=== PATIENT | male | born 1945 | race Two or more races ===

== ENCOUNTER 2019-08-18 09:49 | Emergency (ER) | payer MEDICARE, MEDICAID ==
[2019-06-06 11:09] VITALS: BP 123/86
[~2019-08-18] VITALS: Ht 170.2 cm; Wt 81.4 kg
[~2019-08-18 09:49] MED LIST: PRED20TA PO; TRAM50TA PO
[2019-08-18] MEDS ORDERED: ORPH100T PO (10:45)
[2019-08-18] MEDS ORDERED: METH4TAB2 PO (10:45)
[2019-08-18] MEDS ORDERED: HYDR-2761 PO (10:45)
--- NOTE | 2019-08-18 10:46 | PHYS DOC ---
Past Medical History Past Medical History: Anxiety, GERD, High Cholesterol Past Surgical History: Knee Replacement, Other Additional Past Surgical Histo: SHOULDER Alcohol Use: Occasionally Drug Use: None Adult General Chief Complaint Chief Complaint: LOWER BACK PAIN OR INJURY HPI HPI Patient is a 73 year old male who presents with patient states 2 months ago he was wearing leather soled shoes and slipped on the carpet and went down some stairs and hurt his Left lower back. Patient states he went to [facility] and they did an MRI and nothing was found. Patient states since then he's had pain on that left lower back. Patient states that over the last couple days has gotten worse but he states he has not done any different activity than usual. Patient states that at times a spot on his left lateral thigh will go numb. Patient currently rating his pain a10/10. Review of Systems Review of Systems Constitutional: Denies fever or chills [] Musculoskeletal: Left low back pain or joint pain [] Integument: Denies rash or skin lesions [] Neurologic: Left lateral thigh numbness off and on. Denies headache, focal weakness or sensory changes [] All other systems were reviewed and found to be within normal limits, except as documented in this note. Allergies Allergies Allergies Coded Allergies Type Severity Reaction Last Updated Verified adhesive tape Allergy Intermediate 06/06/19 Yes latex Allergy Intermediate 06/06/19 Yes Physical Exam Physical Exam Constitutional: Well developed, well nourished, no acute distress, non-toxic appearance. [] Skin: Warm, dry, no erythema, no rash. [] Back: Left lower back tenderness, no CVA tenderness. [] Extremities: No tenderness, no cyanosis, no clubbing, ROM intact, no edema. [] Neurologic: Alert and oriented X 3, normal motor function, normal sensory function, no focal deficits noted. [] Psychologic: Affect normal, judgement normal, mood normal. [] Current Patient Data Vital Signs Vital Signs Date Time Temp Pulse Resp B/P (MAP) Pulse Ox O2 Delivery O2 Flow Rate FiO2 08/18/19 09:55 97.9 95 20 136/78 (97) 97 Room Air 97.9 EKG EKG [] Radiology/Procedures Radiology/Procedures [] Course & Med Decision Making Course & Med Decision Making Patient states he's been using a heating pad and ibuprofen for the pain. He is ambulatory with a steady gait but is holding his left back as he walks. There is no extremity swelling, skin is pink warm and dry. Patient denies the leg which are going cold or skin color changes. No calf tenderness. Left low back is slightly tender to palpation but there is no deformity felt or bruising seen. Alert and oriented. Speaks in full clear sentences. There is no weakness in the extremity. Patient denies losing bowel or bladder. Dragon Disclaimer Dragon Disclaimer This electronic medical record was generated, in whole or in part, using a voice recognition dictation system. Departure Departure Impression: Primary Impression: Chronic low back pain Disposition: HOME, SELF-CARE Condition: STABLE Referrals: MICHAEL GÓMEZ APRN (PCP) Patient Instructions: Back Pain, Adult Additional Instructions: Follow up with primary care provider. Continue using heating pad or Ice. Scripts Methylprednisolone (MEDROL) 4 Mg Tab.ds.pk 1 PKG PO UD, #1 PKG Prov: RADHA OCHOA APRN 08/18/19 Orphenadrine Citrate (ORPHENADRINE CITRATE) 100 Mg Tablet.er 1 TAB PO BID, #20 TAB Prov: RADHA OCHOA APRN 08/18/19 Hydrocodone Bit/Acetaminophen (HYDROCODONE-APAP 5-325 ) 1 Tab Tablet 1 TAB PO PRN Q6HRS PRN for PAIN, #10 TAB 0 Refills Prov: RADHA OCHOA APRN 08/18/19 Problem Qualifiers Primary Impression: Chronic low back pain Back pain laterality: left Sciatica presence: without sciatica Qualified Codes: M54.5 - Low back pain; G89.29 - Other chronic pain RADHA OCHOA APRN Aug 18, 2019 10:46
[2019-08-18] MEDS ORDERED: ORPHENADRINE CITRATE 60 MG/2 ML VIAL. IM ONE (11:00)
[2019-08-18] MEDS ORDERED: HYDROcodone/APAP 5/325MG 1 TAB TABLET PO ONE (11:00)
== END 2019-08-18 10:58 | disposition home or self-care (01) ==
LOC: ER 09:49
DX: G89.29 Other chronic pain (principal); M54.5 Low back pain; F41.9 Anxiety disorder, unspecified; K21.9 Gastro-esophageal reflux disease without esophagitis; E78.00 Pure hypercholesterolemia, unspecified; Z96.659 Presence of unspecified artificial knee joint; Z88.8 Allergy status to other drugs, medicaments and biological substances; Z91.040 Latex allergy status; W10.8XXA Fall (on) (from) other stairs and steps, initial encounter; Y93.89 Activity, other specified; Y92.89 Other specified places as the place of occurrence of the external cause; Y99.8 Other external cause status
CPT/HCPCS: 96372; 99284; J2360

== ENCOUNTER 2019-08-31 14:56 | Emergency (ER) | payer MEDICARE, MEDICAID ==
[~2019-08-31] VITALS: Ht 170.2 cm; Wt 81.2 kg
[~2019-08-31 14:56] MED LIST changes: +HYDR-2761 PO; +METH4TAB2 PO; +ORPH100T PO
--- NOTE | 2019-08-31 17:30 | RAD ---
RIBS LEFT AND PA CHEST 08/31/2019 4:45 PM INDICATION: Left-sided rib pain after fall 200923/04/2019 COMPARISON: None available TECHNIQUE: Portable frontal view of the chest is provided. 3 dedicated views of the left ribs are provided. FINDINGS: The cardiomediastinal silhouette is similar in appearance. Lungs are clear. Contour abnormality is identified involving the lateral sixth and seventh ribs which could reflect nondisplaced or healed rib fractures. There are no significant pleural effusions. There is no pulmonary vascular congestion. No pneumothorax. IMPRESSION: Contour abnormality is identified involving the lateral sixth and seventh ribs which could reflect nondisplaced or healed rib fractures. Correlate with a site of point tenderness. Electronically signed by: Louise Sánchez MD (08/31/2019 5:27 PM) [facility]
[2019-08-31] MEDS ORDERED: HYDR-2761 PO (17:55)
--- NOTE | 2019-08-31 17:56 | PHYS DOC ---
Past Medical History Past Medical History: Anxiety, GERD, High Cholesterol (ADAM LEON APRN) Past Surgical History: Knee Replacement, Other Additional Past Surgical Histo: SHOULDER (ADAM LEON APRN) Alcohol Use: Occasionally Drug Use: None (ADAM LEON APRN) Adult General Chief Complaint Chief Complaint: MECHANICAL FALL HPI HPI Patient is a 73 year old male, accompanied by his , who presents to the ER with complaints of left rib pain. Pt states he tried to sit on a chair that rolled Saturday evening at 2330 when it slid out from under him and he fell. Pt states he didn't think much of it until he went for a routine CT of his lungs today and was told he had rib fractures by the staff at . Patient denies any shortness of breath, hemoptysis, chest pain, difficulty breathing, or cough. He currently rates his pain an 8 out of 10 on the pain scale, the pain increases with deep inspiration and coughing. He denies any alleviating factors. (ADAM LEON APRN) Review of Systems Review of Systems Constitutional: Denies fever or chills [] Respiratory: Denies cough or shortness of breath; see history of present illness[] Cardiovascular: No additional information not addressed in HPI [] GI: Denies abdominal pain, nausea, vomiting, or diarrhea [] Musculoskeletal: Denies back pain or joint pain; complains of left lateral rib pain [] Integument: Denies rash or skin lesions [] Neurologic: Denies headache, focal weakness or sensory changes [] Complete systems were reviewed and found to be within normal limits, except as documented in this note. (ADAM LEON APRN) Current Medications Current Medications Current Medications Medications (Trade) Dose Ordered Sig/Stephanie Start Time Stop Time Status Last Admin Dose Admin Acetaminophen/ Hydrocodone Bitart (Lortab 5/325) 1 tab 1X ONCE 08/31/19 18:00 08/31/19 18:01 DC 08/31/19 18:14 1 TAB (LAURA KIRAN MD) Allergies Allergies Allergies Coded Allergies Type Severity Reaction Last Updated Verified adhesive tape Allergy Intermediate 06/06/19 Yes latex Allergy Intermediate 06/06/19 Yes (LAURA KIRAN MD) Physical Exam Physical Exam Constitutional: Well developed, well nourished, no acute distress, non-toxic appearance. [] HENT: Normocephalic, atraumatic, bilateral external ears normal, oropharynx moist, no oral exudates, nose normal. [] Eyes: PERRLA, EOMI, conjunctiva normal, no discharge. [] Neck: Normal range of motion, no stridor. [] Cardiovascular:Heart rate regular rhythm, no murmur [] Lungs & Thorax: Bilateral breath sounds clear to auscultation; left lateral rib TTP, no crepitus, no subcutaneous emphysema noted [] Skin: Warm, dry, no erythema, no rash. [] Back: No tenderness Extremities: No cyanosis, no clubbing, ROM intact, no edema. [] Neurologic: Alert and oriented X 3, no focal deficits noted. [] Psychologic: Affect normal, judgement normal, mood normal. [] (ADAM LEON APRN) Current Patient Data Vital Signs Vital Signs Date Time Temp Pulse Resp B/P (MAP) Pulse Ox O2 Delivery O2 Flow Rate FiO2 08/31/19 18:14 16 99 Room Air 08/31/19 18:02 98.6 82 136/78 (97) 98.6 (LAURA KIRAN MD) EKG EKG [] (ADAM LEON APRN) Radiology/Procedures Radiology/Procedures PROCEDURE: RIBS LEFT AND PA CHEST RIBS LEFT AND PA CHEST 08/31/2019 4:45 PM INDICATION: Left-sided rib pain after fall 200923/04/2019 COMPARISON: None available TECHNIQUE: Portable frontal view of the chest is provided. 3 dedicated views of the left ribs are provided. FINDINGS: The cardiomediastinal silhouette is similar in appearance. Lungs are clear. Contour abnormality is identified involving the lateral sixth and seventh ribs which could reflect nondisplaced or healed rib fractures. There are no significant pleural effusions. There is no pulmonary vascular congestion. No pneumothorax. IMPRESSION: Contour abnormality is identified involving the lateral sixth and seventh ribs which could reflect nondisplaced or healed rib fractures. Correlate with a site of point tenderness. [] (ADAM LEON APRN) Course & Med Decision Making Course & Med Decision Making Pertinent Labs and Imaging studies reviewed. (See chart for details) dx: rib fractures left lateral ribs Prescription was written for hydrocodone. Patient encouraged follow-up with primary care doctor in 1-2 days, return to the ER if symptoms worsen recommend that he takes 2 deep breaths and coughs were holding a pillow twice an hour while he is awake. Pt verbalized an understanding of home care, medications, follow-up, and return to ED instructions and was in agreement with the plan of care. [] (ADAM LEON APRN) Course & Med Decision Making I was not involved in the care of this patient after 1800 on . (LAURA KIRAN MD) Dragon Disclaimer Dragon Disclaimer This electronic medical record was generated, in whole or in part, using a voice recognition dictation system. (ADAM LEON APRN) Departure Departure Impression: Primary Impression: Multiple fractures of ribs, left side, initial encounter for closed fracture Disposition: HOME, SELF-CARE Condition: STABLE Referrals: MICHAEL GÓMEZ APRN (PCP) Patient Instructions: Rib Fracture, [id number] Additional Instructions: Fill the prescription and take as directed for severe pain. Hold a pillow and cough at least 2 times every hour while awake. Follow up with your primary care doctor this week. Return to the ER if symptoms worsen. Scripts Hydrocodone Bit/Acetaminophen (HYDROCODONE-APAP 5-325 ) 1 Tab Tablet 1 TAB PO PRN Q6HRS PRN for PAIN for 3 Days, #12 TAB 0 Refills Prov: ADAM LEON APRN 08/31/19 ADAM LEON APRN Aug 31, 2019 17:56 LAURA KIRAN MD Sep 04, 2019 12:17
[2019-08-31] MEDS ORDERED: HYDROcodone/APAP 5/325MG 1 TAB TABLET PO ONE (18:00)
[2019-08-31 18:02] VITALS: BP 136/78
== END 2019-08-31 18:17 | disposition home or self-care (01) ==
LOC: ER 14:56
DX: S22.42XA Multiple fractures of ribs, left side, initial encounter for closed fracture (principal); F41.9 Anxiety disorder, unspecified; K21.9 Gastro-esophageal reflux disease without esophagitis; E78.00 Pure hypercholesterolemia, unspecified; Z96.659 Presence of unspecified artificial knee joint; Z88.8 Allergy status to other drugs, medicaments and biological substances; Z91.040 Latex allergy status; W07.XXXA Fall from chair, initial encounter; Y93.89 Activity, other specified; Y92.89 Other specified places as the place of occurrence of the external cause; Y99.8 Other external cause status
CPT/HCPCS: 71101; 99284

== ENCOUNTER 2019-11-21 10:20 | Emergency (ER) | payer MEDICARE, MEDICAID ==
[2019-11-21 10:41] VITALS: BP 132/82
--- NOTE | 2019-11-21 10:52 | PHYS DOC ---
Past Medical History Past Medical History: Anxiety, GERD, High Cholesterol Past Surgical History: Knee Replacement, Other Additional Past Surgical Histo: SHOULDER Alcohol Use: Occasionally Drug Use: None Adult General Chief Complaint Chief Complaint: BACK PAIN OR INJURY HPI HPI Patient is a 73 year old male who presents with September 30, 2019 patient was diagnosed at with a complaint compression fracture in the lumbar spine. Earlene saldaña states he's been seen at the pain clinic and they did an MRI at . He states that they scheduled him for December 03 given epidural. Patient states that he is here today because he is in more pain than usual and pain clinic is not given him anything. He states he still does have some numbness in that left thigh that he has had since September. Patient is standing and pacing in the room with a steady gait. Patient states he also has a dry cough that has had off and on for a month. He states it's mainly when he goes outside in residential the cold air. He denies asthma or COPD or other lung issues. Denies any fevers, shortness of breath, chest pain, nausea, vomiting, abdominal pain, headache, dizziness, syncope, diarrhea. Denies any loss of bowel or bladder. Rates pain a 10/10. Review of Systems Review of Systems Respiratory: Dry cough or denies shortness of breath [] Musculoskeletal: Chronic back pain or joint pain [] All other systems were reviewed and found to be within normal limits, except as documented in this note. Current Medications Current Medications Current Medications Medications (Trade) Dose Ordered Sig/Stephanie Start Time Stop Time Status Last Admin Dose Admin Acetaminophen/ Hydrocodone Bitart (Lortab 5/325) 1 tab 1X ONCE 11/21/19 11:00 11/21/19 11:01 DC 11/21/19 11:15 1 TAB Orphenadrine Citrate (Norflex) 60 mg 1X ONCE 11/21/19 11:00 11/21/19 11:01 DC 11/21/19 11:15 60 MG Allergies Allergies Allergies Coded Allergies Type Severity Reaction Last Updated Verified adhesive tape Allergy Intermediate 06/06/19 Yes latex Allergy Intermediate 06/06/19 Yes Physical Exam Physical Exam Constitutional: Well developed, well nourished, no acute distress, non-toxic appearance. [] HENT: Normocephalic, atraumatic, bilateral external ears normal, oropharynx moist, no oral exudates, nose normal. [] Eyes: PERRLA, EOMI, conjunctiva normal, no discharge. [] Neck: Normal range of motion, no tenderness, supple, no stridor. [] Cardiovascular:Heart rate regular rhythm, no murmur [] Lungs & Thorax: Bilateral breath sounds clear to auscultation [] Abdomen: Bowel sounds normal, soft, no tenderness, no masses, no pulsatile masses. [] Skin: Warm, dry, no erythema, no rash. [] Back: Left low back tenderness, no CVA tenderness. [] Extremities: No tenderness, no cyanosis, no clubbing, ROM intact, no edema. [] Neurologic: Alert and oriented X 3, normal motor function, normal sensory function, no focal deficits noted. Numbness to left thigh. [] Psychologic: Affect normal, judgement normal, mood normal. [] Current Patient Data Vital Signs Vital Signs Date Time Temp Pulse Resp B/P (MAP) Pulse Ox O2 Delivery O2 Flow Rate FiO2 11/21/19 10:41 98.5 76 17 132/82 (99) 98 Room Air 98.5 EKG EKG [] Radiology/Procedures Radiology/Procedures [] Impressions: [facility] [address] [place] [address] IMAGING REPORT Signed PATIENT: COLLEEN CHAPIN ACCOUNT: [id number] : 1945 LOCATION: ER AGE: 73 SEX: M EXAM STATUS: REG ER ORD. PHYSICIAN: RADHA OCHOA APRN REASON: cough, dry cough one month PROCEDURE: CHEST PA & LATERAL Two-view chest dated 11/21/2019. Comparison made to 08/31/2019. CLINICAL INDICATION: Cough. FINDINGS:. PA and lateral views seen. Heart and mediastinal contours are stable. Lungs are somewhat hyperinflated but otherwise clear. No consolidation or pleural effusion. No pneumothorax. IMPRESSION: No acute findings. Electronically signed by: Justino Leonard MD (11/21/2019 11:30 AM) [facility] DICTATED and SIGNED BY: JUSTINO LEONARD MD DATE: 11/21/19 8814 Course & Med Decision Making Course & Med Decision Making Alert and oriented. Lungs are clear patient all lobes. Skin pink warm and dry. Vital signs within normal limits. Speaks in full clear sentences. Tenderness to left lower back. No saddle paresthesia. Chest xray shows no acute findings. Dragon Disclaimer [employer] Disclaimer This electronic medical record was generated, in whole or in part, using a voice recognition dictation system. Departure Departure Impression: Primary Impression: Chronic low back pain Disposition: HOME, SELF-CARE Condition: STABLE Referrals: MICHAEL GÓMEZ APRN (PCP) Patient Instructions: Chronic Back Pain, Cough, Adult Additional Instructions: Take medications as prescribed. Keep your scheduled appointments. Covering your face before you go outside since the cold air triggers your cough. Scripts Orphenadrine Citrate (ORPHENADRINE CITRATE) 100 Mg Tablet.er 1 TAB PO BID, #60 TAB 1 Refill Prov: RADHA OCHOA APRN 11/21/19 Hydrocodone/Apap 5-325 (NORCO 5-325 TABLET) 1 Each Tablet 1 TAB PO PRN Q6HRS PRN for PAIN, #10 TAB 0 Refills Prov: RADHA OCHOA APRN 11/21/19 Methylprednisolone (MEDROL) 4 Mg Tab.ds.pk 1 PKG PO UD, #1 PKG Prov: RADHA OCHOA APRN 11/21/19 Problem Qualifiers Primary Impression: Chronic low back pain Back pain laterality: left Sciatica presence: without sciatica Qualified Codes: M54.5 - Low back pain; G89.29 - Other chronic pain RADHA OCHOA APRN Nov 21, 2019 10:52
[2019-11-21] MEDS ORDERED: HYDROcodone/APAP 5/325MG 1 TAB TABLET PO ONE (11:00)
[2019-11-21] MEDS ORDERED: ORPHENADRINE CITRATE 60 MG/2 ML VIAL. IM ONE (11:00)
--- NOTE | 2019-11-21 11:32 | RAD ---
Two-view chest dated 11/21/2019. Comparison made to 08/31/2019. CLINICAL INDICATION: Cough. FINDINGS:. PA and lateral views seen. Heart and mediastinal contours are stable. Lungs are somewhat hyperinflated but otherwise clear. No consolidation or pleural effusion. No pneumothorax. IMPRESSION: No acute findings. Electronically signed by: Justino Leonard MD (11/21/2019 11:30 AM) [facility]
[2019-11-21] MEDS ORDERED: HYDR-3164 PO (11:43)
[2019-11-21] MEDS ORDERED: METH4TAB2 PO (11:43)
[2019-11-21] MEDS ORDERED: ORPH100T PO (11:43)
== END 2019-11-21 11:58 | disposition home or self-care (01) ==
LOC: ER 10:20
DX: G89.29 Other chronic pain (principal); M54.5 Low back pain; R05 Cough; R20.0 Anesthesia of skin; F41.9 Anxiety disorder, unspecified; K21.9 Gastro-esophageal reflux disease without esophagitis; E78.00 Pure hypercholesterolemia, unspecified; Z91.040 Latex allergy status; Z88.8 Allergy status to other drugs, medicaments and biological substances
CPT/HCPCS: 71046; 96372; 99284; J2360

== ENCOUNTER 2020-03-20 18:08 | Emergency (ER) | payer MEDICARE, MEDICAID ==
[~2020-03-20] VITALS: Ht 170.2 cm; Wt 68.0 kg
[~2020-03-20 18:08] MED LIST changes: +HYDR-3164 PO
[2020-03-20 19:59] LABS: BASO # 0.1 x10^3/uL (0.0-0.2); BASO % 1 % (0-3); EOS # 0.3 x10^3/uL (0.0-0.7); EOS % 4 % (0-3); HEMATOCRIT 41.4 % (39.0-53.0); HEMOGLOBIN 14.2 g/dL (13.0-17.5); LYMPH # 3.1 x10^3/uL (1.0-4.8); LYMPH % 44 % (24-48); MEAN CORPUSCULAR HEMOGLOBIN 32 pg (25-35); MEAN CORPUSCULAR HGB CONC 34 g/dL (31-37); MEAN CORPUSCULAR VOLUME 94 fL (79-100); MONO # 0.5 x10^3/uL (0.0-1.1); MONO % 7 % (0-9); NEUT # 3.2 x10^3/uL (1.8-7.7); NEUT % 45 % (31-73); PLATELET COUNT 273 x10^3/uL (140-400); RED BLOOD COUNT 4.43 x10^6/uL (4.30-5.70); RED CELL DISTRIBUTION WIDTH 13.6 % (11.5-14.5); WHITE BLOOD COUNT 7.1 x10^3/uL (4.0-11.0)
[2020-03-20 20:01] LABS: BILIRUBIN,URINE NEGATIVE (NEG); CLARITY,URINE CLEAR; COLOR,URINE YELLOW; NITRITE,URINE NEGATIVE (NEG); PH,URINE 5.5 (<5.0-8.0); PROTEIN,URINE NEGATIVE (NEG-TRACE); UROBILINOGEN,URINE 0.2 mg/dL (0.2 mg/dL)
[2020-03-20 20:04] LABS: RBC,URINE TNTC /HPF (0-2); WBC,URINE OCC /HPF (0-4)
[2020-03-20 20:05] LABS: BACTERIA,URINE 0 /HPF (0-FEW); SQUAMOUS EPITHELIAL CELL,UR MOD /LPF
[2020-03-20 20:17] LABS: ALBUMIN 3.3 g/dL (3.4-5.0); ALBUMIN/GLOBULIN RATIO 1.1 (1.0-1.7); CALCIUM 8.4 mg/dL (8.5-10.1); CREATININE 0.9 mg/dL (0.7-1.3); GFR 82.7; POTASSIUM 3.7 mmol/L (3.5-5.1); TOTAL BILIRUBIN 0.4 mg/dL (0.2-1.0); TOTAL PROTEIN 6.2 g/dL (6.4-8.2)
[2020-03-20] MEDS ORDERED: KETOROLAC 15 MG/ML VIAL. IVP ONE (20:30)
[2020-03-20] MEDS ORDERED: IV NORMAL SALINE 1000ML BAG 1,000 ML IV ONE (20:30)
[2020-03-20] MEDS ORDERED: METOCLOPRAMIDE HCL 10 MG/2 ML VIAL. IVP ONE (20:30)
--- NOTE | 2020-03-20 21:53 | RAD ---
EXAM: CT Abdomen and Pelvis without IV contrast INDICATION: Left flank pain. Evaluate for kidney stone. TECHNIQUE: Multi-detector row CT images were acquired from the lung bases through the abdomen and pelvis without the use of IV contrast. Sagittal and coronal images were acquired from the transaxial data. All CT scans performed at this facility utilize dose optimization techniques as appropriate to the exam, including the following: Automated exposure control and adjustment of the mA and/or KV according to patient size (this includes techniques or standardized protocols for targeted exams where dose is indication/reason for exam). ORAL CONTRAST: None COMPARISON: None FINDINGS: The absence of IV contrast limits evaluation of soft tissue pathology. LOWER CHEST: Unremarkable LIVER: Hepatic segment 7 cyst near the IVC measuring 3.7 cm. Otherwise unremarkable liver. BILIARY SYSTEM: Gallbladder is surgically absent.. Bile ducts are not dilated. PANCREAS: Unremarkable SPLEEN: Unremarkable ADRENALS: Unremarkable KIDNEYS & URETERS: Nonobstructing 2 mm stone in the superior pole left kidney. No hydronephrosis in either kidney and no radiopaque stones in either ureter are noted. Mild bilateral nonspecific perirenal soft tissue stranding is present. BLADDER: Moderately distended. 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 The prostate is enlarged measuring 5.6 cm. GASTROINTESTINAL: Stomach and small bowel are unremarkable. The large bowel shows extensive colonic diverticulosis. The appendix is normal. MESENTERY/PERITONEUM/RETROPERITONEUM: Unremarkable VASCULAR: Unremarkable LYMPH NODES: No adenopathy OSSEOUS & SOFT TISSUES: Soft tissue abutting the left inguinal canal is suggestive of previous inguinal hernia repair. IMPRESSION: Punctate left nephrolithiasis without findings of obstructive uropathy. Otherwise no specific findings to explain left flank pain. Electronically signed by: Eliseo Harrison MD (03/20/2020 9:50 PM) [facility]
[2020-03-20 22:00] VITALS: BP 154/83
[2020-03-20] MEDS ORDERED: HYDR-3164 PO (22:04)
[2020-03-20] MEDS ORDERED: ONDA4TAB12 PO (22:04)
--- NOTE | 2020-03-20 22:04 | PHYS DOC ---
Past Medical History Past Medical History: Anxiety, GERD, High Cholesterol, Hypertension Past Surgical History: Knee Replacement, Other Additional Past Surgical Histo: SHOULDER Smoking Status: Former Smoker Alcohol Use: Occasionally Drug Use: None General Adult EDM: Chief Complaint: FLANK PAIN HPI: HPI: Patient is a 74 year old [f__sex] who presents with [] Review of Systems: Review of Systems: Constitutional: Denies fever or chills. [] Eyes: Denies change in visual acuity. [] HENT: Denies nasal congestion or sore throat. [] Respiratory: Denies cough or shortness of breath. [] Cardiovascular: Denies chest pain or edema. [] GI: Denies abdominal pain, nausea, vomiting, bloody stools or diarrhea. [] : Denies dysuria. [] Musculoskeletal: Denies back pain or joint pain. [] Integument: Denies rash. [] Neurologic: Denies headache, focal weakness or sensory changes. [] Endocrine: Denies polyuria or polydipsia. [] Lymphatic: Denies swollen glands. [] Psychiatric: Denies depression or anxiety. [] Heart Score: Risk Factors: Risk Factors: DM, Current or recent (<one month) smoker, HTN, HLP, family hi story of CAD, obesity. Risk Scores: Score 0 - 3: 2.5% MACE over next 6 weeks - Discharge Home Score 4 - 6: 20.3% MACE over next 6 weeks - Admit for Clinical Observation Score 7 - 10: 72.7% MACE over next 6 weeks - Early Invasive Strategies Current Medications: Current Medications Medications (Trade) Dose Ordered Sig/[facility] Start Time Stop Time Status Last Admin Dose Admin Ketorolac Tromethamine (Toradol 15mg Vial) 15 mg 1X ONCE 03/20/20 20:30 03/20/20 20:44 DC 03/20/20 20:55 15 MG Metoclopramide HCl (Reglan Vial) 10 mg 1X ONCE 03/20/20 20:30 03/20/20 20:44 DC 03/20/20 20:54 10 MG Sodium Chloride 1,000 ml @ 1,000 mls/hr 1X ONCE 03/20/20 20:30 03/20/20 21:29 DC 03/20/20 20:54 1,000 MLS/HR Allergies: Allergies: Allergies Coded Allergies Type Severity Reaction Last Updated Verified adhesive tape Allergy Intermediate 06/06/19 Yes latex Allergy Intermediate 06/06/19 Yes Physical Exam: PE: Constitutional: Well developed, well nourished, no acute distress, non-toxic tayler earance. [] HENT: Normocephalic, atraumatic, bilateral external ears normal, oropharynx moist, no oral exudates, nose normal. [] Eyes: PERRLA, EOMI, conjunctiva normal, no discharge. [] Neck: Normal range of motion, no tenderness, supple, no stridor. [] Cardiovascular:Heart rate regular rhythm, no murmur [] Lungs & Thorax: Bilateral breath sounds clear to auscultation [] Abdomen: Bowel sounds normal, soft, no tenderness, no masses, no pulsatile masses. [] Skin: Warm, dry, no erythema, no rash. [] Back: No tenderness, no CVA tenderness. [] Extremities: No tenderness, no cyanosis, no clubbing, ROM intact, no edema. [] Neurologic: Alert and oriented X 3, normal motor function, normal sensory function, no focal deficits noted. [] Psychologic: Affect normal, judgement normal, mood normal. [] Current Patient Data: Labs: Laboratory Tests Test 03/20/20 19:15 White Blood Count 7.1 x10^3/uL (4.0-11.0) Red Blood Count 4.43 x10^6/uL (4.30-5.70) Hemoglobin 14.2 g/dL (13.0-17.5) Hematocrit 41.4 % (39.0-53.0) Mean Corpuscular Volume 94 fL (79-100) Mean Corpuscular Hemoglobin 32 pg (25-35) Mean Corpuscular Hemoglobin Concent 34 g/dL (31-37) Red Cell Distribution Width 13.6 % (11.5-14.5) Platelet Count 273 x10^3/uL (140-400) Neutrophils (%) (Auto) 45 % (31-73) Lymphocytes (%) (Auto) 44 % (24-48) Monocytes (%) (Auto) 7 % (0-9) Eosinophils (%) (Auto) 4 % (0-3) H Basophils (%) (Auto) 1 % (0-3) Neutrophils # (Auto) 3.2 x10^3/uL (1.8-7.7) Lymphocytes # (Auto) 3.1 x10^3/uL (1.0-4.8) Monocytes # (Auto) 0.5 x10^3/uL (0.0-1.1) Eosinophils # (Auto) 0.3 x10^3/uL (0.0-0.7) Basophils # (Auto) 0.1 x10^3/uL (0.0-0.2) Urine Collection Type Unknown Urine Color Yellow Urine Clarity Clear Urine pH 5.5 (<5.0-8.0) Urine Specific [place] 1.015 (1.000-1.030) Urine Protein Negative mg/dL (NEG-TRACE) Urine Glucose (UA) Negative mg/dL (NEG) Urine Ketones (Stick) Negative mg/dL (NEG) Urine Blood Large (NEG) Urine Nitrite Negative (NEG) Urine Bilirubin Negative (NEG) Urine Urobilinogen Dipstick 0.2 mg/dL (0.2 mg/dL) Urine Leukocyte Esterase Negative (NEG) Urine RBC Tntc /HPF (0-2) Urine WBC Occ /HPF (0-4) Urine Squamous Epithelial Cells Mod /LPF Urine Bacteria 0 /HPF (0-FEW) Urine Mucus Mod /LPF Sodium Level 141 mmol/L (136-145) Potassium Level 3.7 mmol/L (3.5-5.1) Chloride Level 107 mmol/L (98-107) Carbon Dioxide Level 24 mmol/L (21-32) Anion Gap 10 (6-14) Blood Urea Nitrogen 13 mg/dL (8-26) Creatinine 0.9 mg/dL (0.7-1.3) Estimated GFR (Cockcroft-Gault) 82.7 BUN/Creatinine Ratio 14 (6-20) Glucose Level 99 mg/dL (70-99) Calcium Level 8.4 mg/dL (8.5-10.1) L Magnesium Level 1.8 mg/dL (1.8-2.4) Total Bilirubin 0.4 mg/dL (0.2-1.0) Aspartate Amino Transferase (AST) 22 U/L (15-37) Alanine Aminotransferase (ALT) 24 U/L (16-63) Alkaline Phosphatase 116 U/L (46-116) Total Protein 6.2 g/dL (6.4-8.2) L Albumin 3.3 g/dL (3.4-5.0) L Albumin/Globulin Ratio 1.1 (1.0-1.7) Laboratory Tests 03/20/20 19:15 Laboratory Tests 03/20/20 19:15 Vital Signs: Vital Signs Date Time Temp Pulse Resp B/P (MAP) Pulse Ox O2 Delivery O2 Flow Rate FiO2 03/20/20 19:15 97.7 66 18 152/83 (106) 99 Room Air 97.7 EKG: EKG: [] Radiology/Procedures: Radiology/Procedures: PROCEDURE: CT ABDOMEN PELVIS WO CONTRAST EXAM: CT Abdomen and Pelvis without IV contrast INDICATION: Left flank pain. Evaluate for kidney stone. TECHNIQUE: Multi-detector row CT images were acquired from the lung bases through the abdomen and pelvis without the use of IV contrast. Sagittal and coronal images were acquired from the transaxial data. All CT scans performed at this facility utilize dose optimization techniques as appropriate to the exam, including the following: Automated exposure control and adjustment of the mA and/or KV according to patient size (this includes techniques or standardized protocols for targeted exams where dose is indication/reason for exam). ORAL CONTRAST: None COMPARISON: None FINDINGS: The absence of IV contrast limits evaluation of soft tissue pathology. LOWER CHEST: Unremarkable LIVER: Hepatic segment 7 cyst near the IVC measuring 3.7 cm. Otherwise unremarkable liver. BILIARY SYSTEM: Gallbladder is surgically absent.. Bile ducts are not dilated. PANCREAS: Unremarkable SPLEEN: Unremarkable ADRENALS: Unremarkable KIDNEYS & URETERS: Nonobstructing 2 mm stone in the superior pole left kidney. No hydronephrosis in either kidney and no radiopaque stones in either ureter are noted. Mild bilateral nonspecific perirenal soft tissue stranding is present. BLADDER: Moderately distended. 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 The prostate is enlarged measuring 5.6 cm. GASTROINTESTINAL: Stomach and small bowel are unremarkable. The large bowel shows extensive colonic diverticulosis. The appendix is normal. MESENTERY/PERITONEUM/RETROPERITONEUM: Unremarkable VASCULAR: Unremarkable LYMPH NODES: No adenopathy OSSEOUS & SOFT TISSUES: Soft tissue abutting the left inguinal canal is suggestive of previous inguinal hernia repair. IMPRESSION: Punctate left nephrolithiasis without findings of obstructive uropathy. Otherwise no specific findings to explain left flank pain. Electronically signed by: Eliseo Harrison MD (03/20/2020 9:50 PM) [facility] [place] Course & Med Decision Making: Course & Med Decision Making Pertinent Labs and Imaging studies reviewed. (See chart for details) [] Erica Disclaimer: Erica Disclaimer: This electronic medical record was generated, in whole or in part, using a voice recognition dictation system. Departure Departure Impression: Primary Impression: Kidney stone Disposition: 01 HOME, SELF-CARE Condition: STABLE Referrals: MICHAEL GÓMEZ APRN (PCP) Patient Instructions: Diet for Kidney Stones, Kidney Stones, [id number] Additional Instructions: Use previously prescribed pain and nausea medication as needed. JEANNE RAMOS DO March 20, 2020 22:04
== END 2020-03-20 22:25 | disposition home or self-care (01) ==
LOC: ER 18:08
DX: N20.0 Calculus of kidney (principal); K57.30 Diverticulosis of large intestine without perforation or abscess without bleeding; K21.9 Gastro-esophageal reflux disease without esophagitis; E78.00 Pure hypercholesterolemia, unspecified; I10 Essential (primary) hypertension; Z87.891 Personal history of nicotine dependence; Z91.040 Latex allergy status; Z88.8 Allergy status to other drugs, medicaments and biological substances
CPT/HCPCS: 36415; 74176; 80053; 81001; 83735; 85025; 96374; 96375; 99285; J1885; J2765; J7030

== ENCOUNTER 2021-04-28 09:51 | Emergency (ER) | payer MEDICARE, MEDICAID ==
[~2021-04-28] VITALS: Ht 170.2 cm; Wt 73.8 kg
[~2021-04-28 09:51] MED LIST changes: +ONDA4TAB12 PO
[2021-04-28 09:55] VITALS: BP 115/70
[2021-04-28] MEDS ORDERED: PRED50TA PO (10:19)
[2021-04-28] MEDS ORDERED: HYDR-2761 PO (10:19)
--- NOTE | 2021-04-28 10:19 | PHYS DOC ---
Past Medical History Past Medical History: Anxiety, GERD, High Cholesterol, Hypertension Past Surgical History: Knee Replacement, Other Additional Past Surgical Histo: SHOULDER Smoking Status: Former Smoker Alcohol Use: Occasionally Drug Use: None General Adult EDM: Chief Complaint: NECK PAIN HPI: HPI: 75-year-old male presenting with left-sided neck pain. Is a throbbing aching severe pain worse this morning. He has had it for many months and has seen another doctor who was treating him. [facility] and is currently awaiting being seen by that doctor. The pain radiates down more the left arm than the right but it radiates bilaterally into the arms. He denies weakness or numbness in his hands. He denies difficulty walking ambulating or with speech. Review of systems negative for chest pain shortness of breath abdominal pain vomiting diaphoresis fevers or chills. All other review of systems negative. Heart Score: C/O Chest Pain: No Risk Factors: Risk Factors: DM, Current or recent (<one month) smoker, HTN, HLP, family history of CAD, obesity. Risk Scores: Score 0 - 3: 2.5% MACE over next 6 weeks - Discharge Home Score 4 - 6: 20.3% MACE over next 6 weeks - Admit for Clinical Observation Score 7 - 10: 72.7% MACE over next 6 weeks - Early Invasive Strategies Allergies: Allergies: Allergies Coded Allergies Type Severity Reaction Last Updated Verified adhesive tape Allergy Intermediate 06/06/19 Yes latex Allergy Intermediate 06/06/19 Yes Physical Exam: PE: Constitutional: Well developed, well nourished, no acute distress, non-toxic appearance. [] HENT: Normocephalic, atraumatic, bilateral external ears normal, oropharynx moist, no oral exudates, nose normal. [] Eyes: PERRLA, EOMI, conjunctiva normal, no discharge. [] Neck: Normal range of motion, no tenderness, supple, no stridor. The posterior portion of the neck is nontender midline with some pain in the trapezius paraspinal musculature bilaterally. No step-offs. No fluctuant mass. Normal range of motion of the neck without nuchal rigidity. Mild increased pain with pressure on the head. 5 out of 5 strength in extension and flexion at the elbow. Patient is able to abduct and abduct fingers. Normal sensation of the hands bilaterally. Patient is able to make an A-OK cross fingers and give a thumbs up bilaterally. Cardiovascular:Heart rate regular rhythm, no murmur [] Lungs & Thorax: Bilateral breath sounds clear to auscultation [] Abdomen: Bowel sounds normal, soft, no tenderness, no masses, no pulsatile masses. [] Skin: Warm, dry, no erythema, no rash. [] Back: No tenderness, no CVA tenderness. [] Extremities: No tenderness, no cyanosis, no clubbing, ROM intact, no edema. [] Neurologic: Alert and oriented X 3, normal motor function, normal sensory function, no focal deficits noted. [] Psychologic: Affect normal, judgement normal, mood normal. [] EKG: EKG: [] Radiology/Procedures: Radiology/Procedures: [] Course & Med Decision Making: Course & Med Decision Making Pertinent Labs and Imaging studies reviewed. (See chart for details) [] 48-year-old male with a cervical radiculopathy. We will give the patient intramuscular hydromorphone. Oral pain medications provided. Will discharge to follow-up with PCP in 1 to 2 days. Dragon Disclaimer: MangoPlate Disclaimer: This electronic medical record was generated, in whole or in part, using a voice recognition dictation system. Departure Departure Impression: Primary Impression: Radiculopathy of cervical region Disposition: 01 HOME / SELF CARE / HOMELESS Condition: STABLE Referrals: MICHAEL GÓMEZ APRN (PCP) Patient Instructions: Cervical Radiculopathy, [id number] Additional Instructions: EMERGENCY DEPARTMENT GENERAL DISCHARGE INSTRUCTIONS Follow-up with your primary physician in 1 to 2 days. Return to the emergency department if you have any new or concerning findings. Thank you for coming to [facility] Emergency Department (ED) today and trusting us with you care. We trust that you had a positive experience in our Emergency Department. If you wish to speak to the department management, you may call the Director at [phone]. Follow up is important in emergency/acute care visits. This condition should be evaluated by your primary care physician and any necessary consulting services for continued management within a few days (1-2) after discharge. Return to the emergency department if you have any new or concerning symptoms including but not limited to fever, chills, nausea, vomiting, intractable pain, any new rashes, chest pain, shortness of breath, uncontrolled bleeding, difficulty breathing, and/or vision loss. 1. Do you have a private Doctor? If you do not have a private doctor, please ask for a resource list of physicians or clinics that may be able to assist you with follow up care. 2. If a lab test or culture has been done and does not come back immediately, your results will be reviewed and you will be notified if you need a change in treatment. 3. Your care today has been supervised by a physician who is specially trained in emergency care. Many problems require more than one evaluation for a com plete diagnosis and treatment. We recommend that you schedule your follow up appointment as recommended to ensure complete treatment of you illness or injury. If you are unable to obtain follow up care and continue to have a problem, or if your condition worsens, we recommend that you return to the ED. 4. We are not able to safely determine your condition over the phone nor are we able to give sound medical advice over the phone. For these safety reasons, if you call for medical advice we will ask you to come to the ED for further evaluation. IF YOUR SYMPTOMS WORSEN OR NEW SYMPTOMS DEVELOP, OR YOU HAVE CONCERNS ABOUT YOUR CONDITION; OR IF YOUR CONDITION WORSENS WHILE YOU ARE WAITING FOR YOUR FOLLOW UP APPOINTMENT; EITHER CONTACT YOUR PRIMARY CARE DOCTOR, THE PHYSICIAN WHOSE NAME AND NUMBER YOU WERE GIVEN, OR RETURN TO THE ED IMMEDIATELY. Scripts Hydrocodone Bit/Acetaminophen (HYDROCODONE-APAP 5-325 ) 1 Tab Tablet 1 TAB PO PRN Q8HRS PRN for sev, #8 TAB 0 Refills Prov: SCAR SANZ MD 04/28/21 Prednisone (PREDNISONE) 50 Mg Tablet 1 TAB PO DAILY, #5 TAB Prov: SCAR SANZ MD 04/28/21 SCAR SANZ MD Apr 28, 2021 10:19
[2021-04-28] MEDS ORDERED: HYDROmorphone 2 MG/ML VIAL IM ONE (10:30)
== END 2021-04-28 11:07 | disposition home or self-care (01) ==
LOC: ER 09:51
DX: M54.12 Radiculopathy, cervical region (principal); F41.9 Anxiety disorder, unspecified; K21.9 Gastro-esophageal reflux disease without esophagitis; E78.00 Pure hypercholesterolemia, unspecified; I10 Essential (primary) hypertension; Z88.8 Allergy status to other drugs, medicaments and biological substances; Z91.040 Latex allergy status
CPT/HCPCS: 96372; 99283; J1170

== ENCOUNTER 2021-08-24 14:42 | Emergency (ER) | payer MEDICARE, MEDICAID ==
[~2021-08-24] VITALS: Ht 170.2 cm; Wt 80.0 kg
[~2021-08-24 14:42] MED LIST changes: +PRED50TA PO
--- NOTE | 2021-08-24 15:57 | PHYS DOC ---
Past Medical History Past Medical History: Anxiety, GERD, High Cholesterol, Hypertension Past Surgical History: Hysterectomy Additional Past Surgical Histo: SHOULDER Smoking Status: Never Smoker Alcohol Use: Occasionally Drug Use: None General Adult EDM: Chief Complaint: BLOOD IN URINE HPI: HPI: Patient is a 75 year old male who is here with report of bilateral flank pain, worse on the right than the left, with dysuria and hematuria. He has a longstanding history of multiple episodes of ureteral stones and renal colic. He has a urologist at [facility]. He reports nausea without vomiting. He denies constipation or diarrhea. He denies any anterior abdominal pain. He reports he is had the symptoms progressing over the last several days. He reports that he has required lithotripsy multiple times for very large stones. Review of Systems: Review of Systems: Constitutional: Denies fever or chills. [] Eyes: Denies change in visual acuity. [] HENT: Denies nasal congestion or sore throat. [] Respiratory: Denies cough or shortness of breath. [] Cardiovascular: Denies chest pain or edema. [] GI: Denies abdominal pain. Reports nausea without vomiting. No bowel habit changes. : Dysuria and hematuria Musculoskeletal: Reports flank pain. Integument: Denies rash. [] Neurologic: Denies headache, focal weakness or sensory changes. [] Psychiatric: Denies depression or anxiety. [] Heart Score: C/O Chest Pain: No Risk Factors: Risk Factors: DM, Current or recent (<one month) smoker, HTN, HLP, family history of CAD, obesity. Risk Scores: Score 0 - 3: 2.5% MACE over next 6 weeks - Discharge Home Score 4 - 6: 20.3% MACE over next 6 weeks - Admit for Clinical Observation Score 7 - 10: 72.7% MACE over next 6 weeks - Early Invasive Strategies Allergies: Allergies: Allergies Coded Allergies Type Severity Reaction Last Updated Verified adhesive tape Allergy Intermediate 06/06/19 Yes latex Allergy Intermediate 06/06/19 Yes Physical Exam: PE: Constitutional: Well developed, well nourished, no acute distress, non-toxic appearance. [] HENT: Normocephalic, atraumatic, bilateral external ears normal, oropharynx moist, no oral exudates, nose normal. [] Eyes: Sclera clear and anicteric, no discharge. [] Neck: Normal range of motion, no tenderness, supple, no stridor. [] Cardiovascular:Heart rate regular rhythm, no murmur [] Lungs & Thorax: Bilateral breath sounds clear to auscultation [] Abdomen: Bowel sounds normal, soft, no tenderness, no masses, no pulsatile m asses. No flank or abdominal ecchymoses noted. No CVA tenderness. Skin: Warm, dry, no erythema, no rash. [] Back: No tenderness, no CVA tenderness. [] Extremities: No tenderness, no cyanosis, no clubbing, ROM intact, no edema. [] Neurologic: Alert and oriented X 3, normal motor function, normal sensory function, no focal deficits noted. [] Psychologic: Affect normal, judgement normal, mood normal. [] Current Patient Data: Vital Signs: Vital Signs Date Time Temp Pulse Resp B/P (MAP) Pulse Ox O2 Delivery O2 Flow Rate FiO2 08/24/21 15:50 70 16 171/72 (105) 99 Room Air EKG: EKG: [] Radiology/Procedures: Radiology/Procedures: IMAGING REPORT Signed PATIENT: COLLEEN CHAPIN ACCOUNT: [id number] : 1945 LOCATION: ER AGE: 75 SEX: M EXAM STATUS: REG ER ORD. PHYSICIAN: ELAINA ROACH DO REASON: renal colic PROCEDURE: CT ABDOMEN PELVIS WO CONTRAST INDICATION: Reason: renal colic / Spl. Instructions: / History: COMPARISON: March 2020 TECHNIQUE: Axial CT images were obtained through the abdomen and pelvis without intravenous contrast. One or more of the following individualized dose reduction techniques were utilized for this examination: 1. Automated exposure control; 2. Adjustment of the mA and/or kV according to patient size; 3. Use of iterative reconstruction technique. FINDINGS: Calcified granulomas of the lung bases. Mild bronchiectasis. Penile reservoir in the right lower quadrant adjacent to the urinary bladder. Suspected fat-containing left inguinal hernia. There are again some prominent lymph nodes in the right groin which is similar to prior. Vascular: No abdominal aortic aneurysm. Hepatobiliary: 4 cm cyst within the liver. Postcholecystectomy changes. Additional suspected cyst at liver dome within left lobe. Pancreas: No peripancreatic edema. Spleen: Spleen unremarkable. Renal/Bladder: Urinary bladder is partially distended with some prominence of the wall. Prominent prostate with calcific regions. No hydronephrosis. Gastrointestinal: Colonic diverticulosis. No periappendiceal inflammatory changes. At the left inguinal region there is repeat demonstration of some loculated fluid measuring up to about 29 mm. Could be from a chronic fluid collection such as seroma or lymphocele. Degenerative changes of the hips and spine with multilevel central canal and neural foraminal stenosis. Patchy osseous demineralization. IMPRESSION: * Nonobstructive left renal stone without hydronephrosis or radiopaque obstructive ureter stone. * Portion of the urinary bladder wall is mildly prominent in thickness. This may be a chronic finding since there is a similar appearance on prior but would correlate with symptoms to ensure that there is not a superimposed acute mild cause such as urinary tract infection. * No evidence of bowel obstruction or appendicitis. Electronically signed by: Alex Dasilva MD (08/24/2021 5:03 PM) DESKTOP- [id number] DICTATED and SIGNED BY: ALEX DASILVA MD DATE: 08/24/21 [id number] Course & Med Decision Making: Course & Med Decision Making Pertinent Labs and Imaging studies reviewed. (See chart for details) The patient is given IV fluids, IV Zofran, IV morphine and p.o. [place] here. No obstructing ureteral stone is noted on imaging. He does have evidence of hematuria, without pyuria or bacteria. He is well-appearing. He has a benign abdominal exam. I discussed the findings, differential diagnosis and plan of care with him. I told him to contact his PCP and urologist for follow-up. He does have hematuria, and renal colic symptoms, which may represent recent he passed ureteral stone, however no radiopaque stone or hydronephrosis is seen at this time. No indication for admission or transfer. I did explain that he may wish to consider urology follow-up and possible cystoscopy to further evaluate for thickened bladder on CT as well as continued hematuria. He feels comfortable with the plan for discharge home. Strict return precautions are given. Dragon Disclaimer: Dragon Disclaimer: This electronic medical record was generated, in whole or in part, using a voice recognition dictation system. Departure Departure Impression: Primary Impression: Hematuria Additional Impressions: Flank pain History of renal colic Disposition: HOME / SELF CARE / HOMELESS Condition: STABLE Referrals: MICHAEL GÓMEZ APRN (PCP) Patient Instructions: Hematuria, Adult, Ureteral Colic Additional Instructions: Use the medication as needed/as directed. Stay well-hydrated, drink plenty of fluids. Please contact your primary care physician for follow-up and for further pain medication refills, if necessary. Please contact your urologist to discuss the blood in your urine. Your bladder did appear to be slightly thickened on CT scan. You do not have any evidence of obvious infection on your urine here today. You should discuss the possibility of cystoscopy with your urologist for further investigation of this. Return to the ER for uncontrolled vomiting, dehydration, more severe pain, fever of 100.4 or higher or any other concerns. Scripts Ondansetron Hcl (ZOFRAN) 4 Mg Tablet 4 MG PO PRN TID PRN for VOMITING, #20 EA nausea/vomiting Prov: ELAINA ROACH DO 08/24/21 Hydrocodone Bit/Acetaminophen (HYDROCODONE-APAP 5-325 ) 1 Tab Tablet 1 TAB PO PRN Q6HRS PRN for PAIN, #15 TAB 0 Refills Prov: ELAINA ROACH DO 08/24/21 ELAINA ROACH DO Aug 24, 2021 15:57
[2021-08-24] MEDS ORDERED: ONDANSETRON PF 4 MG/2 ML VIAL. IVP ONE (16:15)
[2021-08-24] MEDS ORDERED: MORPHINE SULFATE 4 MG/ML INJ. IVP ONE (16:15)
[2021-08-24] MEDS ORDERED: IV NORMAL SALINE 1000ML BAG 1,000 ML IV ONE (16:15)
[2021-08-24 16:22] LABS: BILIRUBIN,URINE NEGATIVE (NEG); CLARITY,URINE CLEAR; COLOR,URINE YELLOW; NITRITE,URINE NEGATIVE (NEG); PROTEIN,URINE NEGATIVE (NEG-TRACE); UROBILINOGEN,URINE 0.2 mg/dL (0.2 mg/dL)
[2021-08-24 16:27] LABS: BACTERIA,URINE 0 /HPF (0-FEW); WBC,URINE 0 /HPF (0-4)
--- NOTE | 2021-08-24 17:05 | RAD ---
INDICATION: Reason: renal colic / Spl. Instructions: / History: COMPARISON: March 2020 TECHNIQUE: Axial CT images were obtained through the abdomen and pelvis without intravenous contrast. One or more of the following individualized dose reduction techniques were utilized for this examinat ion: 1. Automated exposure control; 2. Adjustment of the mA and/or kV according to patient size; 3 . Use of iterative reconstruction technique. FINDINGS: Calcified granulomas of the lung bases. Mild bronchiectasis. Penile reservoir in the right lower quadrant adjacent to the urinary bladder. Suspected fat-containin g left inguinal hernia. There are again some prominent lymph nodes in the right groin which is simila r to prior. Vascular: No abdominal aortic aneurysm. Hepatobiliary: 4 cm cyst within the liver. Postcholecystectomy changes. Additional suspected cyst at liver dome within left lobe. Pancreas: No peripancreatic edema. Spleen: Spleen unremarkable. Renal/Bladder: Urinary bladder is partially distended with some prominence of the wall. Prominent pro state with calcific regions. No hydronephrosis. Gastrointestinal: Colonic diverticulosis. No periappendiceal inflammatory changes. At the left inguinal region there is repeat demonstration of some loculated fluid measuring up to abo ut 29 mm. Could be from a chronic fluid collection such as seroma or lymphocele. Degenerative changes of the hips and spine with multilevel central canal and neural foraminal stenosis. Patchy osseous de mineralization. IMPRESSION: * Nonobstructive left renal stone without hydronephrosis or radiopaque obstructive ureter stone. * Portion of the urinary bladder wall is mildly prominent in thickness. This may be a chronic findin g since there is a similar appearance on prior but would correlate with symptoms to ensure that there is not a superimposed acute mild cause such as urinary tract infection. * No evidence of bowel obstruction or appendicitis. Electronically signed by: Jatin Taylor MD (08/24/2021 5:03 PM) [id number]
[2021-08-24 17:11] LABS: BASO % 1 % (0-3); EOS # 0.1 x10^3/uL (0.0-0.7); EOS % 3 % (0-3); HEMATOCRIT 42.7 % (39.0-53.0); HEMOGLOBIN 14.7 g/dL (13.0-17.5); LYMPH % 46 % (24-48); MEAN CORPUSCULAR HEMOGLOBIN 32 pg (25-35); MEAN CORPUSCULAR HGB CONC 35 g/dL (31-37); MEAN CORPUSCULAR VOLUME 92 fL (79-100); MONO # 0.3 x10^3/uL (0.0-1.1); MONO % 7 % (0-9); NEUT # 1.9 x10^3/uL (1.8-7.7); NEUT % 44 % (31-73); PLATELET COUNT 256 x10^3/uL (140-400); RED BLOOD COUNT 4.63 x10^6/uL (4.30-5.70); RED CELL DISTRIBUTION WIDTH 14.4 % (11.5-14.5); WHITE BLOOD COUNT 4.5 x10^3/uL (4.0-11.0)
[2021-08-24 17:19] LABS: CALCIUM 8.5 mg/dL (8.5-10.1); POTASSIUM 3.8 mmol/L (3.5-5.1)
[2021-08-24 17:24] LABS: ALBUMIN 3.5 g/dL (3.4-5.0); ALBUMIN/GLOBULIN RATIO 1.1 (1.0-1.7); TOTAL BILIRUBIN 0.5 mg/dL (0.2-1.0); TOTAL PROTEIN 6.7 g/dL (6.4-8.2)
[2021-08-24] MEDS ORDERED: HYDR-2761 PO (17:39)
[2021-08-24] MEDS ORDERED: ONDA4TAB7 PO (17:39)
[2021-08-24] MEDS ORDERED: HYDROcodone/APAP 5/325MG 1 TAB TABLET PO ONE (17:45)
[2021-08-24 17:51] VITALS: BP 150/80
== END 2021-08-24 17:56 | disposition home or self-care (01) ==
LOC: ER 15:43
DX: R31.9 Hematuria, unspecified (principal); R30.0 Dysuria; R10.9 Unspecified abdominal pain; F41.9 Anxiety disorder, unspecified; K21.9 Gastro-esophageal reflux disease without esophagitis; E78.00 Pure hypercholesterolemia, unspecified; I10 Essential (primary) hypertension; Z88.8 Allergy status to other drugs, medicaments and biological substances; Z91.040 Latex allergy status
CPT/HCPCS: 36415; 74176; 80053; 81001; 83690; 85025; 96361; 96374; 96375; 99284; J2270; J2405; J7030

== ENCOUNTER 2021-09-12 10:43 | Emergency (ER) | payer MEDICARE, MEDICAID ==
[~2021-09-12] VITALS: Ht 170.2 cm; Wt 77.4 kg
[~2021-09-12 10:43] MED LIST changes: +ONDA4TAB7 PO
[2021-09-12] MEDS ORDERED: KETOROLAC 30 MG/ML VIAL. IVP ONE (13:00)
[2021-09-12] MEDS ORDERED: IV NORMAL SALINE 1000ML BAG 1,000 ML IV ONE (13:00)
[2021-09-12 13:05] LABS: BILIRUBIN,URINE NEGATIVE (NEG); CLARITY,URINE CLEAR; COLOR,URINE YELLOW; NITRITE,URINE NEGATIVE (NEG); PH,URINE 5.5 (<5.0-8.0); PROTEIN,URINE NEGATIVE (NEG-TRACE); UROBILINOGEN,URINE 0.2 mg/dL (0.2 mg/dL)
--- NOTE | 2021-09-12 13:05 | PHYS DOC ---
Past Medical History Past Medical History: Anxiety, GERD, High Cholesterol, Hypertension (ANNELISE DA SILVA APRN) Past Surgical History: No Surgical History Additional Past Surgical Histo: colectomy (ANNELISE DA SILVA APRN) Smoking Status: Never Smoker Alcohol Use: Occasionally Drug Use: None (ANNELISE DA SILVA APRN) General Adult EDM: Chief Complaint: ABDOMINAL PAIN HPI: HPI: Patient is a 75-year-old male presents to the emergency department for suprapubic pain. He reports that the pain has been going on for 2 days and originated in bilateral flanks. He has a history of kidney stones. Patient reports that this feels just like a kidney stone. He rates his pain 8 out of 10. No treatment prior to arrival. Patient follows up with a urologist. Patient reports that he has an appointment with a urologist in 2 weeks. He reports hematuria and dysuria. He denies any nausea, vomiting, diarrhea, fevers. (ANNELISE DA SILVA APRN) Review of Systems: Review of Systems: Constitutional: See HPI GI: See HPI : See HPI Musculoskeletal: See HPI (ANNELISE DA SILVA APRN) Heart Score: C/O Chest Pain: N/A Risk Factors: Risk Factors: DM, Current or recent (<one month) smoker, HTN, HLP, family history of CAD, obesity. Risk Scores: Score 0 - 3: 2.5% MACE over next 6 weeks - Discharge Home Score 4 - 6: 20.3% MACE over next 6 weeks - Admit for Clinical Observation Score 7 - 10: 72.7% MACE over next 6 weeks - Early Invasive Strategies (ANNELISE DA SILVA APRN) Current Medications: Current Medications Medications (Trade) Dose Ordered Sig/Stephanie Start Time Stop Time Status Last Admin Dose Admin Ketorolac Tromethamine (Toradol 30mg Vial) 30 mg 1X ONCE 09/12/21 13:00 09/12/21 13:01 DC Sodium Chloride 1,000 ml @ 1,000 mls/hr 1X ONCE 09/12/21 13:00 09/12/21 13:59 (ANNELISE DA SILVA APRN) Allergies: Allergies: Allergies Coded Allergies Type Severity Reaction Last Updated Verified adhesive tape Allergy Intermediate 09/12/21 Yes latex Allergy Intermediate 09/12/21 Yes (ANNELISE DA SILVA APRN) Physical Exam: PE: Constitutional: Well developed, well nourished, no acute distress, non-toxic appearance. [] HENT: Normocephalic, atraumatic Eyes: PERRL, EOMI, conjunctiva normal, no discharge. [] Neck: Normal range of motion, no stridor Cardiovascular:Heart rate regular rhythm, no murmur [] Lungs & Thorax: Bilateral breath sounds clear to auscultation [] Abdomen: Bowel sounds normal, soft, suprapubic tenderness with palpation, no masses, no pulsatile masses. [] Skin: Warm, dry, no erythema, no rash. [] Back: No tenderness, no CVA tenderness. [] Extremities: No tenderness, no cyanosis, no clubbing, ROM intact, no edema. [] Neurologic: Alert and oriented X 3, normal motor function, normal sensory function, no focal deficits noted. [] Psychologic: Affect normal, judgement normal, mood normal. [] (ANNELISE DA SILVA APRN) Current Patient Data: Labs: Laboratory Tests Test 09/12/21 12:29 09/12/21 13:10 Urine Collection Type Unknown Urine Color Yellow Urine Clarity Clear Urine pH 5.5 Urine Specific [place] 1.015 Urine Protein Negative mg/dL Urine Glucose (UA) Negative mg/dL Urine Ketones (Stick) Negative mg/dL Urine Blood Moderate Urine Nitrite Negative Urine Bilirubin Negative Urine Urobilinogen Dipstick 0.2 mg/dL Urine Leukocyte Esterase Negative Urine RBC 11-20 /HPF Urine WBC 1-4 /HPF Urine Squamous Epithelial Cells Mod /LPF Urine Bacteria Few /HPF Urine Mucus Mod /LPF White Blood Count 4.7 x10^3/uL Red Blood Count 4.57 x10^6/uL Hemoglobin 14.6 g/dL Hematocrit 42.3 % Mean Corpuscular Volume 93 fL Mean Corpuscular Hemoglobin 32 pg Mean Corpuscular Hemoglobin Concent 34 g/dL Red Cell Distribution Width 14.3 % Platelet Count 267 x10^3/uL Neutrophils (%) (Auto) 42 % Lymphocytes (%) (Auto) 47 % Monocytes (%) (Auto) 7 % Eosinophils (%) (Auto) 3 % Basophils (%) (Auto) 1 % Neutrophils # (Auto) 2.0 x10^3/uL Lymphocytes # (Auto) 2.2 x10^3/uL Monocytes # (Auto) 0.3 x10^3/uL Eosinophils # (Auto) 0.1 x10^3/uL Basophils # (Auto) 0.0 x10^3/uL Sodium Level 141 mmol/L Potassium Level 3.8 mmol/L Chloride Level 106 mmol/L Carbon Dioxide Level 28 mmol/L Anion Gap 7 Blood Urea Nitrogen 12 mg/dL Creatinine 1.0 mg/dL Estimated GFR (Cockcroft-Gault) 73.0 BUN/Creatinine Ratio 12 Glucose Level 96 mg/dL Calcium Level 8.4 mg/dL Total Bilirubin 0.7 mg/dL Aspartate Amino Transf (AST/SGOT) 18 U/L Alanine Aminotransferase (ALT/SGPT) 25 U/L Alkaline Phosphatase 111 U/L Total Protein 6.2 g/dL Albumin 3.4 g/dL Albumin/Globulin Ratio 1.2 Current Medications Medications (Trade) Dose Ordered Sig/Stephanie Route PRN Reason Start Time Stop Time Status Last Admin Dose Admin Sodium Chloride 1,000 ml @ 1,000 mls/hr 1X ONCE IV 09/12/21 13:00 09/12/21 13:59 DC 09/12/21 13:18 Ketorolac Tromethamine (Toradol 30mg Vial) 30 mg 1X ONCE IVP 09/12/21 13:00 09/12/21 13:01 DC 09/12/21 13:19 Fentanyl Citrate (Fentanyl 2ml Vial) 50 mcg 1X ONCE IVP 09/12/21 14:00 09/12/21 14:02 DC Vital Signs: Vital Signs Date Time Temp Pulse Resp B/P (MAP) Pulse Ox O2 Delivery O2 Flow Rate FiO2 09/12/21 12:27 97.4 66 16 155/85 (108) 100 Room Air 97.4 (ANNELISE DA SILVA APRN) EKG: EKG: [] (ANNELISE DA SILVA APRN) Radiology/Procedures: Radiology/Procedures: []PROCEDURE: CT ABDOMEN PELVIS WO CONTRAST EXAM: CT Abdomen and Pelvis without IV contrast CLINICAL HISTORY: abdominal pain COMPARISON: 08/24/2021 03/20/2020 TECHNIQUE: Helical CT of the abdomen and pelvis without intravenous contrast. Axial, coronal and sagittal reformatted images were generated. PQRS compliance statement - One or more of the following individualized dose reduction techniques were utilized for this study: 1. Automated exposure control 2. Adjustment of the mA and/or kV according to patient size 3. Use of iterative reconstruction technique FINDINGS: Lack of intravenous contrast limits evaluation of solid organs, vasculature, and lymph nodes. Lower chest: Calcified granuloma lingula and lower lobes. Abdomen and Pelvis: Hepatic cysts are seen. Spleen, adrenal glands and pancreas are unremarkable. Cholecystectomy clips. No biliary ductal dilatation. Diffuse bladder wall thickening likely cystitis. Nonobstructing left upper pole renal calculus. No hydronephrosis. No hydroureter. Changes of penile prosthesis with reservoir in the right angle region. Moderate colonic stool content is seen. Colonic diverticulosis without CT evidence for acute diverticulitis. Appendix is normal. No abdominal or pelvic ascites. No abdominal pelvic lymphadenopathy. Changes of left inguinal hernia mesh repair. Aorta is normal in caliber. Bones: No aggressive osseous lesion. Severe L5-S1 disc height loss. Degenerative changes of the other levels. Chondrocalcinosis symphysis pubis. IMPRESSION: 1. Nonobstructing left upper pole renal calculus. 2. Bladder wall thickening is nonspecific but may be seen with cholecystitis. 3. Colonic diverticulosis without CT evidence for acute diverticulitis. 4. No bowel obstruction. Electronically signed by: Zafar Quesada MD (09/12/2021 2:08 PM) [id number] DICTATED and SIGNED BY: ZAFAR QUESADA MD DATE: 09/12/21 [id number] (ANNELISE DA SILVA APRN) Course & Med Decision Making: Course & Med Decision Making Pertinent Labs and Imaging studies reviewed. (See chart for details) Patient presents to the emergency department for suprapubic pain. Patient reports that the pain did originate in his bilateral flanks. He is instructed he stands reports that this feels just like a kidney stone. Work-up in the ER consisted of blood work, urinalysis and CT imaging of abdomen and pelvis. Patient treated with IV fluids and pain medication. Patient CBC and CMP was unremarkable. Patient urinalysis was positive for an infection and CT scan of his abdomen pelvis showed cystitis and a nonobstructing calculus in his left upper renal pole. Patient be discharged home with an antibiotic and advised to follow-up with his urologist as previously scheduled. He can take ibuprofen and/or Tylenol for pain. I discussed with patient all findings and diagnostic testing as well as the need to follow-up with PCP for further evaluation and treatment or return to the ER if any new or worsening symptoms. Strict return precautions were also discussed at length. Patient voiced understanding and agreement with the plan. Patient is hemodynamically stable at the time of disposition. (ANNELISE DA SILVA APRN) Erica Disclaimer: Erica Disclaimer: This electronic medical record was generated, in whole or in part, using a voice recognition dictation system. (ANNELISE DA SILVA APRN) Departure Departure Impression: Primary Impression: Cystitis Disposition: HOME / SELF CARE / HOMELESS Condition: GOOD Referrals: MICHAEL GÓMEZ APRN (PCP) Patient Instructions: Urinary Tract Infection Additional Instructions: You are seen in the emergency department today for suprapubic pain. You were noted to have a urinary tract infection on your urinalysis and bladder wall thickening consistent with cystitis. You are being discharged home with an antibiotic. Please start and finish it completely. You do have a kidney stone but is still in your left kidney and not in your ureter making it unlikely that that is the cause of your pain. Please follow-up with your urologist as previously scheduled. Increase your fluids. Avoid any bladder irritants like caffeine, alcohol and sugary beverages. You can take Tylenol and/or ibuprofen for your pain. Please return to the emergency department if you develop worsening of your pain, high fevers refractory to treatment, intractable nausea or vomiting, blood in your stools or vomit or any new or worsening concerns. Scripts Ciprofloxacin Hcl (CIPROFLOXACIN HCL) 500 Mg Tablet 1 TAB PO BID for cystitis for 7 Days, #14 TAB 0 Refills Prov: ANNELISE DA SILVA APRN 09/12/21 Attending Signature I have participated in the care of this patient and I have reviewed and agree with all pertinent clinical information above including history, exam, and recommendations. (GASTON GRAF DO) ANNELISE DA SILVA APRN Sep 12, 2021 13:05 GASTON GRAF DO Sep 12, 2021 15:07
[2021-09-12 13:19] LABS: BACTERIA,URINE FEW /HPF (0-FEW)
[2021-09-12 13:21] LABS: BASO % 1 % (0-3); EOS # 0.1 x10^3/uL (0.0-0.7); EOS % 3 % (0-3); HEMATOCRIT 42.3 % (39.0-53.0); HEMOGLOBIN 14.6 g/dL (13.0-17.5); LYMPH # 2.2 x10^3/uL (1.0-4.8); LYMPH % 47 % (24-48); MEAN CORPUSCULAR HEMOGLOBIN 32 pg (25-35); MEAN CORPUSCULAR HGB CONC 34 g/dL (31-37); MEAN CORPUSCULAR VOLUME 93 fL (79-100); MONO # 0.3 x10^3/uL (0.0-1.1); MONO % 7 % (0-9); NEUT % 42 % (31-73); PLATELET COUNT 267 x10^3/uL (140-400); RED BLOOD COUNT 4.57 x10^6/uL (4.30-5.70); RED CELL DISTRIBUTION WIDTH 14.3 % (11.5-14.5); WHITE BLOOD COUNT 4.7 x10^3/uL (4.0-11.0)
[2021-09-12 13:32] LABS: CALCIUM 8.4 mg/dL (8.5-10.1); POTASSIUM 3.8 mmol/L (3.5-5.1)
[2021-09-12 13:38] LABS: ALBUMIN 3.4 g/dL (3.4-5.0); ALBUMIN/GLOBULIN RATIO 1.2 (1.0-1.7); TOTAL BILIRUBIN 0.7 mg/dL (0.2-1.0); TOTAL PROTEIN 6.2 g/dL (6.4-8.2)
[2021-09-12] MEDS ORDERED: fentaNYL PF VIAL 100 MCG/2 ML VIAL IVP ONE (14:00)
--- NOTE | 2021-09-12 14:11 | RAD ---
EXAM: CT Abdomen and Pelvis without IV contrast CLINICAL HISTORY: abdominal pain COMPARISON: 08/24/2021 03/20/2020 TECHNIQUE: Helical CT of the abdomen and pelvis without intravenous contrast. Axial, coronal and sagi ttal reformatted images were generated. PQRS compliance statement - One or more of the following individualized dose reduction techniques wer e utilized for this study: 1. Automated exposure control 2. Adjustment of the mA and/or kV according to patient size 3. Use of iterative reconstruction technique FINDINGS: Lack of intravenous contrast limits evaluation of solid organs, vasculature, and lymph nodes. Lower chest: Calcified granuloma lingula and lower lobes. Abdomen and Pelvis: Hepatic cysts are seen. Spleen, adrenal glands and pancreas are unremarkable. Cholecystectomy clips. No biliary ductal dilatation. Diffuse bladder wall thickening likely cystitis. Nonobstructing left upper pole renal calculus. No hy dronephrosis. No hydroureter. Changes of penile prosthesis with reservoir in the right angle region. Moderate colonic stool content is seen. Colonic diverticulosis without CT evidence for acute divertic ulitis. Appendix is normal. No abdominal or pelvic ascites. No abdominal pelvic lymphadenopathy. [place] ges of left inguinal hernia mesh repair. Aorta is normal in caliber. Bones: No aggressive osseous lesion. Severe L5-S1 disc height loss. Degenerative changes of the other levels . Chondrocalcinosis symphysis pubis. IMPRESSION: 1. Nonobstructing left upper pole renal calculus. 2. Bladder wall thickening is nonspecific but may be seen with cholecystitis. 3. Colonic diverticulosis without CT evidence for acute diverticulitis. 4. No bowel obstruction. Electronically signed by: Zafar Mcneill MD (09/12/2021 2:08 PM) [facility]
[2021-09-12] MEDS ORDERED: CIPR500T2 PO (14:22)
[2021-09-12 14:55] VITALS: BP 153/75
== END 2021-09-12 15:00 | disposition home or self-care (01) ==
LOC: ER 10:43
DX: K21.9 Gastro-esophageal reflux disease without esophagitis (principal); E78.00 Pure hypercholesterolemia, unspecified; I10 Essential (primary) hypertension; Z90.49 Acquired absence of other specified parts of digestive tract; Z91.040 Latex allergy status; Z88.8 Allergy status to other drugs, medicaments and biological substances
CPT/HCPCS: 36415; 74176; 80053; 81001; 85025; 96361; 96374; 96375; 99284; J1885; J3010; J7030

== ENCOUNTER 2022-01-29 18:22 | Emergency (ER) | payer MEDICARE, MEDICAID ==
[~2022-01-29] VITALS: Ht 170.2 cm; Wt 80.0 kg
[~2022-01-29 18:22] MED LIST changes: +CIPR500T2 PO
[2022-01-29 21:00] VITALS: BP 180/93
--- NOTE | 2022-01-29 21:54 | PHYS DOC ---
Past Medical History Past Medical History: Anxiety, GERD, High Cholesterol, Hypertension Past Surgical History: No Surgical History Additional Past Surgical Histo: colectomy Smoking Status: Never Smoker Alcohol Use: None Drug Use: None Adult General Chief Complaint Chief Complaint: BACK PAIN - NO INJURY HPI HPI The patient is a 76-year-old male with a history of hypertension, hyperlipidemia and acid reflux. He is a former smoker. He has a history of prior renal and ureteral stones. Mr. Parks presents for evaluation of bilateral flank discomfort with onset about 3 days ago. Discomfort is intermittent and waxes and wanes while present. It is not reproducible to palpation and is not reproducible and does not worsen with bending or twisting of the torso. Pain is present now and severity is about 8 out of 10 per patient. He does appear comfortable. Discomfort feels similar to prior kidney stone pain per patient. He denies associated fevers, nausea or vomiting, upper respiratory congestion/rhinorrhea, cough, sore throat, shortness of breath or chest pain of any kind, abdominal pain of any kind, midline back pain, dysuria, hematuria, polyuria or oliguria, changes in bowel habits, groin pain, loss of bowel or bladder control, saddle anesthesia, new lower extremity weakness, numbness or tingling, new urinary retention, use of intravenous illegal drugs. Vital signs are appropriate here and the patient is in no acute distress, ambulatory with a narrow, steady gait to ED bed 9. Review of Systems Review of Systems A 12 point review of systems was completed and was negative except where noted in HPI above. Current Medications Current Medications Current Medications Medications (Trade) Dose Ordered Sig/[facility] Start Time Stop Time Status Last Admin Dose Admin Fentanyl Citrate (Fentanyl 2ml Vial) 50 mcg 1X ONCE 01/29/22 22:00 01/29/22 22:01 DC 01/29/22 22:32 50 MCG Morphine Sulfate (Morphine Sulfate) 4 mg 1X ONCE 01/29/22 23:45 01/29/22 23:46 DC 01/29/22 23:35 4 MG Sodium Chloride 1,000 ml @ 1,000 mls/hr 1X ONCE 01/29/22 22:00 01/29/22 22:59 DC 01/29/22 22:31 1,000 MLS/HR Allergies Allergies Allergies Coded Allergies Type Severity Reaction Last Updated Verified adhesive tape Allergy Intermediate 09/12/21 Yes latex Allergy Intermediate 09/12/21 Yes Physical Exam Physical Exam 76-year-old male appearing nontoxic and in no acute distress. Head is normocephalic and atraumatic. Neck is supple and nontender. Oropharynx is moist. Lungs are clear to auscultation at all stations. There is a normal S1 and S2 without rubs or gallops and capillary refill is appropriate, less than 2 seconds globally. Abdomen is soft, nontender and nondistended. No pulsatile mass. Skin is warm and dry without cyanosis, clubbing or edema. Psychiatrically, the patient demonstrates appropriate mood and affect and is alert. Evaluation of the back reveals no erythema, warmth, swelling, tenderness, step-offs or deformities. Evaluation of the extremities reveals BUEs and BLEs neurovascular intact distally with strength 5 out of 5, sensation intact light touch in all nerve distributions, radial, DP and PT pulses 2+ and equal bilaterally, capillary refill less than 2 seconds, hands and feet warm and well-perfused. No dependent peripheral edema distally. No calf tenderness or swelling bilaterally. Homans test is negative bilaterally. Current Patient Data Vital Signs Vital Signs Date Time Temp Pulse Resp B/P (MAP) Pulse Ox O2 Delivery O2 Flow Rate FiO2 01/29/22 23:35 97 Room Air 01/29/22 21:00 97.5 77 18 180/93 (122) 97.5 Lab Values Laboratory Tests Test 01/29/22 21:27 01/29/22 22:31 01/29/22 23:18 Urine Collection Type Unknown Urine Color (Auto) Light yellow Urine Turbidity Clear Urine pH (Auto) 6.5 (<5.0-8.0) Urine Specific [place] 1.020 (1.000-1.030) Urine Protein (Auto) Negative mg/dL (Negative) Urine Glucose (Auto)(UA) Negative mg/dL (Negative) Urine Ketones (Auto) Negative mg/dL (Negative) Urine Blood (Auto) Small (Negative) Urine Nitrite Negative (Negative) Urine Bilirubin (Auto) Negative (Negative) Urine Urobilinogen (Auto) Normal mg/dL (Normal) Urine Leukocyte Esterase (Auto) Negative (Negative) Urine RBC 6-10 /HPF (0-2) Urine WBC 0 /HPF (0-4) Urine Squamous Epithelial Cells Few /LPF Urine Bacteria 0 /HPF (0-FEW) White Blood Count 5.2 x10^3/uL (4.0-11.0) Red Blood Count 4.50 x10^6/uL (4.30-5.70) Hemoglobin 14.1 g/dL (13.0-17.5) Hematocrit 41.0 % (39.0-53.0) Mean Corpuscular Volume 91 fL (79-100) Mean Corpuscular Hemoglobin 31 pg (25-35) Mean Corpuscular Hemoglobin Concent 34 g/dL (31-37) Red Cell Distribution Width 13.6 % (11.5-14.5) Platelet Count 209 x10^3/uL (140-400) Neutrophils (%) (Auto) 40 % (31-73) Lymphocytes (%) (Auto) 47 % (24-48) Monocytes (%) (Auto) 7 % (0-9) Eosinophils (%) (Auto) 5 % (0-3) H Basophils (%) (Auto) 1 % (0-3) Neutrophils # (Auto) 2.1 x10^3/uL (1.8-7.7) Lymphocytes # (Auto) 2.5 x10^3/uL (1.0-4.8) Monocytes # (Auto) 0.4 x10^3/uL (0.0-1.1) Eosinophils # (Auto) 0.2 x10^3/uL (0.0-0.7) Basophils # (Auto) 0.0 x10^3/uL (0.0-0.2) Sodium Level 143 mmol/L (136-145) Potassium Level 3.5 mmol/L (3.5-5.1) Chloride Level 108 mmol/L (98-107) H Carbon Dioxide Level 23 mmol/L (21-32) Anion Gap 12 (6-14) Blood Urea Nitrogen 15 mg/dL (8-26) Creatinine 1.0 mg/dL (0.7-1.3) Estimated GFR (Cockcroft-Gault) 72.8 BUN/Creatinine Ratio 15 (6-20) Glucose Level 139 mg/dL (70-99) H Calcium Level 8.5 mg/dL (8.5-10.1) Total Bilirubin 0.4 mg/dL (0.2-1.0) Aspartate Amino Transferase (AST) 16 U/L (15-37) Alanine Aminotransferase (ALT) 23 U/L (16-63) Alkaline Phosphatase 99 U/L (46-116) Troponin I High Sensitivity 10 ng/L (4-75) Total Protein 6.6 g/dL (6.4-8.2) Albumin 3.4 g/dL (3.4-5.0) Albumin/Globulin Ratio 1.1 (1.0-1.7) Lipase 596 U/L (73-393) H Lactic Acid Level 0.9 mmol/L (0.4-2.0) Laboratory Tests 01/29/22 22:31 Laboratory Tests 01/29/22 22:31 EKG EKG Sinus rhythm, left bundle branch block, rate 69, no acute ST elevation or depression, EP interpretation. Radiology/Procedures Radiology/Procedures CT abdomen/pelvis without contrast 01/29/2022 11:05 PM INDICATION: Bilateral flank pain for 3 days. COMPARISON: CT abdomen/pelvis 09/12/2021 TECHNIQUE: Multiple axial CT images of the abdomen and pelvis were obtained without intravenous contrast. Coronal and sagittal reformats are provided. FINDINGS: Bibasilar calcified granulomas are present. Heart size within normal limits. Simple cysts within the liver measuring up to 3.6 cm in the right hepatic lobe. Cholecystectomy changes are present. Spleen, adrenal glands and pancreas are normal in appearance. The abdominal aorta is normal in course and caliber. There are no pathologically enlarged lymph nodes in the abdomen and pelvis. There is no abdominal free fluid. There is no free intraperitoneal air. Mild calcified atheromatous plaque. Mild to moderate diverticulosis. Small and large bowel are normal in caliber. There is no evidence for bowel obstruction. There are no pericolonic inflammatory changes. A normal, nondilated appendix is visualized without adjacent inflammatory changes. 3 mm nonobstructing calculus identified in the superior pole of left kidney. No hydronephrosis or suspicious renal mass. Urinary bladder is within normal limits given degree of distention. [place] identified in the right inguinal canal. Penile prosthesis noted. Prostate and seminal vesicles are normal. No suspicious osseous abnormality. IMPRESSION: 1. 3 mm nonobstructing calculus in the superior pole of left kidney. No obs tructive uropathy. 2. Mild to moderate diverticulosis. No adjacent inflammation. Electronically signed by: Ramsey Byrd MD (01/29/2022 11:28 PM) [facility] DICTATED and SIGNED BY: RAMSEY BYRD MD DATE: 01/29/222320 Course & Med Decision Making Course & Med Decision Making Well-appearing 76-year-old gentleman presenting for bilateral flank discomfort for 3 days. Vital signs and clinical examination are reassuring. Will place IV and give IV fluids and medication for discomfort as noted and will check labs and urine and will then reevaluate. Anticipate either contrasted or noncontrasted CT scan of the abdomen and pelvis (depending upon results of initial testing) for disposition. 0001: Patient resting comfortably in no acute distress on serial reassessments. Labs and imaging are without correlates for the patient's presenting bilateral flank discomfort. Looking back at records, it appears the patient has had 2 prior presentations in the latter half of 2020 for identical symptoms. Each time, no clear evidence of a cause for patient's symptoms has been identified. At one of the prior to presentations, patient was felt possibly to have a urinary tract infection, although evidence for this was minimal. Patient states, when asked, that his discomfort this time is the same as it has been at his prior 2 visits for the same symptoms. In view of reassuring work-up in this well-appearing patient, will discharge home. Will hold off on antibiotics for UTI as there is no evidence of a urinary tract infection today. We will send a urine culture. Will discharge with medication for discomfort. Patient is advised to follow-up very closely with his urologist in the next few days, as well as with his primary doctor. He understands that if he feels worse instead of better or develops other new symptoms of concern that he should return to the emergency department immediately for reevaluation. All questions are answered. Dragon Disclaimer Dragon Disclaimer This electronic medical record was generated, in whole or in part, using a voice recognition dictation system. Departure Departure Impression: Primary Impression: Bilateral flank pain Disposition: HOME / SELF CARE / HOMELESS Condition: IMPROVED Referrals: MICHAEL GÓMEZ APRN (PCP) Patient Instructions: Flank Pain Additional Instructions: Follow-up very closely with your urologist in the office in the next 2 to 4 days for a reevaluation of your symptoms and a discussion of next best steps in care. Recommend you see your primary doctor within the same timeframe. Drink plenty of fluids and get plenty of rest. Take a [place] pill every 6 hours as needed for discomfort. Be careful because [place] can make you sleepy so do not drive or work or operate machinery while taking it. Return to the emergency department right away for worsening symptoms of any kind or with any other new symptoms of concern. Scripts Hydrocodone/Acetaminophen (Hydrocodone-Acetamin 5-325 mg) 1 Each Tablet 1 EACH PO QID PRN for PAIN, #11 TAB Prov: RADHA ARREOLA MD 01/30/22 RADHA ARREOLA MD Jan 29, 2022 21:54
[2022-01-29 21:57] LABS: BACTERIA,URINE 0 /HPF (0-FEW); WBC,URINE 0 /HPF (0-4)
[2022-01-29] MEDS ORDERED: fentaNYL PF VIAL 100 MCG/2 ML VIAL IVP ONE (22:00)
[2022-01-29] MEDS ORDERED: IV NORMAL SALINE 1000ML BAG 1,000 ML IV ONE (22:00)
[2022-01-29 22:38] LABS: BASO % 1 % (0-3); EOS # 0.2 x10^3/uL (0.0-0.7); EOS % 5 % (0-3); HEMOGLOBIN 14.1 g/dL (13.0-17.5); LYMPH # 2.5 x10^3/uL (1.0-4.8); LYMPH % 47 % (24-48); MEAN CORPUSCULAR HEMOGLOBIN 31 pg (25-35); MEAN CORPUSCULAR HGB CONC 34 g/dL (31-37); MEAN CORPUSCULAR VOLUME 91 fL (79-100); MONO # 0.4 x10^3/uL (0.0-1.1); MONO % 7 % (0-9); NEUT # 2.1 x10^3/uL (1.8-7.7); NEUT % 40 % (31-73); PLATELET COUNT 209 x10^3/uL (140-400); RED CELL DISTRIBUTION WIDTH 13.6 % (11.5-14.5); WHITE BLOOD COUNT 5.2 x10^3/uL (4.0-11.0)
[2022-01-29 22:48] LABS: CALCIUM 8.5 mg/dL (8.5-10.1); GFR 72.8; POTASSIUM 3.5 mmol/L (3.5-5.1)
[2022-01-29 22:53] LABS: ALBUMIN 3.4 g/dL (3.4-5.0); ALBUMIN/GLOBULIN RATIO 1.1 (1.0-1.7); TOTAL BILIRUBIN 0.4 mg/dL (0.2-1.0); TOTAL PROTEIN 6.6 g/dL (6.4-8.2)
--- NOTE | 2022-01-29 23:31 | RAD ---
PQRS Compliance Statement: One or more of the following individualized dose reduction techniques were utilized for this examinat ion: 1. Automated exposure control 2. Adjustment of the mA and/or kV according to patient size 3. Use of iterative reconstruction technique CT abdomen/pelvis without contrast 01/29/2022 11:05 PM INDICATION: Bilateral flank pain for 3 days. COMPARISON: CT abdomen/pelvis 09/12/2021 TECHNIQUE: Multiple axial CT images of the abdomen and pelvis were obtained without intravenous contr ast. Coronal and sagittal reformats are provided. FINDINGS: Bibasilar calcified granulomas are present. Heart size within normal limits. Simple cysts within the liver measuring up to 3.6 cm in the right hepatic lobe. Cholecystectomy changes are present. Spleen, adrenal glands and pancreas are normal in appearance. The abdominal aorta is normal in course and caliber. There are no pathologically enlarged lymph nodes in the abdomen and pelvis. There is no abdominal free fluid. There is no free intraperitoneal air. M ild calcified atheromatous plaque. Mild to moderate diverticulosis. Small and large bowel are normal in caliber. There is no evidence fo r bowel obstruction. There are no pericolonic inflammatory changes. A normal, nondilated appendix is visualized without adjacent inflammatory changes. 3 mm nonobstructing calculus identified in the superior pole of left kidney. No hydronephrosis or slade picious renal mass. Urinary bladder is within normal limits given degree of distention. [place] shirley ntified in the right inguinal canal. Penile prosthesis noted. Prostate and seminal vesicles are tehe l. No suspicious osseous abnormality. IMPRESSION: 1. 3 mm nonobstructing calculus in the superior pole of left kidney. No obstructive uropathy. 2. Mild to moderate diverticulosis. No adjacent inflammation. Electronically signed by: Louise Sánchez MD (01/29/2022 11:28 PM) [facility]
[2022-01-29] MEDS ORDERED: MORPHINE SULFATE 4 MG/ML INJ. IVP ONE (23:45)
[2022-01-30] MEDS ORDERED: HYDR-2759 PO (00:05)
--- NOTE | 2022-01-30 02:40 | EKG ---
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
--- NOTE | 2022-02-01 14:02 | EKG ---
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
== END 2022-01-30 00:10 | disposition home or self-care (01) ==
LOC: ER 18:22
DX: R10.9 Unspecified abdominal pain (principal); M54.6 Pain in thoracic spine; K21.9 Gastro-esophageal reflux disease without esophagitis; E78.00 Pure hypercholesterolemia, unspecified; I10 Essential (primary) hypertension; Z87.891 Personal history of nicotine dependence; Z90.49 Acquired absence of other specified parts of digestive tract
CPT/HCPCS: 36415; 74176; 80053; 81001; 83605; 83690; 84484; 85025; 87086; 93005; 96361; 96374; 96375; 99284; J2270; J3010; J7030